=== PATIENT | female | born 1995 | race Two or more races ===

== ENCOUNTER 2018-11-04 10:14 | Emergency (ER) | payer OTHER ==
--- NOTE | 2018-11-04 11:13 | EDPHY ---
H & P Stated Complaint: bilat arch pain in feet since last night -no trauma Source: Patient Exam Limitations: No limitations - Personal History LMP (Females 10-55): 15-21 Days Ago - Medical/Surgical History Hx Asthma: No Hx Chronic Respiratory Disease: No Hx Diabetes: No Hx Cardiac Disease: No Hx Renal Disease: No Hx Cirrhosis: No Hx Alcoholism: No Hx HIV/AIDS: No Hx Splenectomy or Spleen Trauma: No Other PMH: denies - Social History Smoking Status: Never smoked Time Seen by Provider: 11/04/18 11:09 HPI/ROS: HPI: This is a 22-year-old female who presents with Chief Complaint: bilat arch pain in feet since last night -no trauma Location: Bilateral arch Quality: Pain Duration: 1 night Signs and Symptoms: No bleeding, no radiation, no numbness, no weakness, no tingling, no incontinence, no decreased range of motion, no swelling, + pain, no fever Timing: Acute on chronic Severity: Moderate Context: Patient is an international student at [employer] presents with 1 day history of bilateral arch pain. She denies any trauma. She does wear flat shoes. She reports that over the years this happened several times per year and only goes away with "pain medications." She denies any injury, radiation, decreased range of motion, skin color changes. Denies LOC/head injury/neck pain/dizziness/nausea/vomiting/amnesia. Modifying Factors: No [id number] medications taken Comment: ROS: A comprehensive 10 system review of systems is otherwise negative aside from elements mentioned in the history of present illness. MEDICAL/SURGICAL/SOCIAL HISTORY: Medical history: Generally healthy. Does not take any regular medications. Surgical history: Denies Social history: International student at [employer]. LMP 2 -3 weeks ago. CONSTITUTIONAL: Well-developed, well-nourished young adult female, awake and alert, no obvious distress HEENT: Atraumatic and normocephalic, PERRL, EOMI. Nares patent; no rhinorrhea; no nasal mucosal edema. Tympanic membranes clear. Oropharynx clear, no exudate and moist pink mucosa. Airway patent. No lymphadenopathy. No meningismus. Cardiovascular: Normal S1/S2, regular rate, regular rhythm, without murmur rub or gallop. PULMONARY/CHEST: Symmetrical and nontender. Clear to auscultation bilaterally. Good air movement. No accessory muscle usage. ABDOMEN: Soft, nondistended, nontender, no rebound, no guarding, no peritoneal signs, no masses or organomegaly. No CVAT. EXTREMITIES: 2/2 pulses, strength 5/5, bilateral Ankle: Plantar flexion to 50 , dorsiflexion to 20. Foot inversion to 35 degree. No tenderness/swelling Anterior talofibular ligament. No tenderness/swelling Calcaneofibular ligament , no tenderness/swelling posterior talofibular ligament, no tenderness/swelling posterior inferior tibiofibular ligament. Achilles tendon intact. Reproducible tenderness at the ball of the foot with no skin color changes. Pes planus noted bilaterally. no deformities, no clubbing, no cyanosis or edema. Negative Homans sign. NEUROLOGICAL: no focal neuro deficits. GCS 15. SKIN: Warm and dry, no erythema. no rash. Good capillary refill. (Marah Franco) Constitutional: Initial Vital Signs Temperature (C) 36.5 C 11/04/18 10:18 Heart Rate 90 11/04/18 10:18 Respiratory Rate 16 11/04/18 10:18 Blood Pressure 102/73 11/04/18 10:18 O2 Sat (%) 99 11/04/18 10:18 O2 Delivery Mode Room Air Allergies/Adverse Reactions: No Known Allergies Allergy (Unverified 11/04/18 10:16) Home Medications: Medication Instructions Recorded traMADol [Ultram 50 mg (*)] 50 mg PO Q6 PRN #10 tab 11/04/18 Medical Decision Making - Diagnostics Imaging Results: Imaging Impressions Foot X-Ray 11/04/18 11:09 Impression: Normal. No explanation for pain. Foot X-Ray 11/04/18 11:09 Impression: Normal. No explanation for pain. ED Course/Re-evaluation: The patient was evaluated and managed by the physician care management assistant. I have reviewed this chart and I agree with the findings and plan of care as documented , as indicated by my signature. I am the secondary supervising physician. ( Rosa Elena Villalpando) Vital signs reviewed and stable upon arrival. Bilateral foot x-rays ordered and show pes planus but no significant degenerative changes, fracture, dislocation. Suspect plantar fasciitis secondary to pes planus and wearing flat shoes with poor support. Given a small amount of tramadol due to low pain threshold, advised proper supportive shoes, podiatry follow-up Ambulatory at discharge with no deficits. No signs of neurovascular compromise/tenting of skin/compartment syndrome/ extremities and joints examined above and below area of concern and are neurovascularly intact. This patient was seen under the supervision of my secondary supervising physician. I evaluated care for this patient independently. (Marah Franco) Differential Diagnosis: Differential diagnosis includes but is not limited to fracture, bursitis, tendonitis, plantar fasciitis. (Marah Franco) Departure - Departure Disposition: Home, Routine, Self-Care Clinical Impression: Plantar fasciitis, bilateral, Pes planus of both feet Condition: Good Instructions: Plantar Fasciitis (ED) Additional Instructions: Take Tylenol 650 mg every 4 hours and/or Ibuprofen 600 mg every 8 hours with food as needed for pain. Use tramadol every 6 hours as needed for severe/break through pain. Apply ice for 30 minutes at a time; 2-3 times per day for the next 1-2 days. Wear shoes with proper arch support. Do not wear flat shoes. You may benefit from insert of orthotics into your shoes. Follow up with Podiatry in 5-7 days symptoms persist at which time they will evaluate and recommend with you if conservative management versus further adjuvant therapy is indicated. The x-rays obtained in the emergency department today demonstrate no evidence of an obvious fracture. Referrals: Fariba Khalil [Doctor of Podiatric Medicine] - As per Instructions Stand Alone Forms: School Excuse Prescriptions: traMADol [Ultram 50 mg (*)] 50 mg PO Q6 PRN #10 tab PRN Reason: Pain, Severe
[2018-11-04 12:13] VITALS: BP 109/75
== END 2018-11-04 12:12 | disposition home or self-care (01) ==
DX: M72.2 Plantar fascial fibromatosis (principal); M21.42 Flat foot [pes planus] (acquired), left foot; M21.41 Flat foot [pes planus] (acquired), right foot